=== PATIENT | male | born 1980 | race African-American/Black ===

== ENCOUNTER 2016-12-03 16:17 | Emergency (ER) | payer OTHER ==
[~2016-12-03] VITALS: Ht 185.4 cm; Wt 70.9 kg
[2016-12-03 17:49] LABS: HEMATOCRIT 41.8 % (38.0-50.0); MCH 30.5 PG (29.0-34.0); MCV 92.3 FL (86-99); MEAN PLAT.VOLUME 8.7 uM^3 (9.0-12.4); PLATELET COUNT 289 K/uL (156-360); RBC DIS.WIDTH-CV 14.3 % (11.8-14.6); RBC DIS.WIDTH-SD 48.9 % (39-53); RED BLOOD COUNT 4.53 M/uL (4.00-5.50); WHITE BLOOD COUNT 7.8 K/uL (4.1-10.2)
[2016-12-03 18:03] LABS: CHLORIDE 105 mEq/L (99-109); POTASSIUM 4.2 mEq/L (3.7-5.4); SODIUM 140 mEq/L (136-147)
[2016-12-03 18:05] LABS: GLUCOSE 90 mg/dL (70-99)
[2016-12-03 18:06] LABS: ANION GAP 11 MEQ/L (2-14)
[2016-12-03 18:09] LABS: UREA NITROGEN (BUN) 12 mg/dL (9-23)
[2016-12-03 18:11] LABS: TROP-I INTERPRETATION NEGATIVE; TROPONIN-I < 0.01 ng/mL (0.0-0.30)
[2016-12-03 18:13] LABS: GFR ESTIMATE (CALCULATED) > 59 mL/min/
[2016-12-03] MEDS ORDERED: NAPROSYN500 MG PO (18:47)
[2016-12-03 20:00] VITALS: BP 140/88
== END 2016-12-03 20:00 | disposition home or self-care (01) ==
LOC: EME 16:17
DX: R07.9 Chest pain, unspecified (principal); F17.200 Nicotine dependence, unspecified, uncomplicated
CPT/HCPCS: 71020; 80048; 84484; 85027; 93005; 99281; 99283